=== PATIENT | female | born 1955 | race Caucasian/White ===

== ENCOUNTER 2018-07-11 09:13 | Day surgery (SDC) | payer MEDICARE ==
[2018-07-10 13:48] VITALS: BMI 35.2
[2018-07-11] MEDS ORDERED: Lidocaine 1% w/Epinephrine 1:100K 20 ML VIAL ONE (09:36)
[2018-07-11] MEDS ORDERED: Gelfilm 1 EA Packet ONE (09:36)
[2018-07-11 10:12] LABS: Anion Gap 14 mmol/L (10-20); BUN (Urea Nitrogen) 16 mg/dL (9.8-20.1); Calc. Creatinine Clearance 66 mL/min (70-130); Calcium 9.7 mg/dL (7.8-10.44); Carbon Dioxide 25 mmol/L (23-31); Chloride 104 mmol/L (98-107); Estimated GFR-MDRD 41; Glucose 99 mg/dL (80-115); Potassium 4.3 mmol/L (3.5-5.1); Sodium 139 mmol/L (136-145)
[2018-07-11] MEDS ORDERED: Fentanyl 100 MCG/2 ML VIAL ONE ×2 (10:23→13:39)
[2018-07-11] MEDS ORDERED: Midazolam HCl 2 mg/2 ml Vial ONE (10:23)
[2018-07-11] MEDS ORDERED: Ciprofloxacin 0.2% Otic 1 DROP CON ONE (12:10)
[2018-07-11] MEDS ORDERED: HYDROcodone/Acetaminophen 5/325 mg Tablet ONE (15:10)
[2018-07-11] MEDS ORDERED: PROPOFOL 200 MG/20 ML VIAL ONE (16:11)
[2018-07-11] MEDS ORDERED: Dexamethasone 20 MG/5 ML VIAL ONE (16:11)
[2018-07-11] MEDS ORDERED: ePHEDrine 50 MG/ML VIAL ONE (16:11)
[2018-07-11] MEDS ORDERED: Lidocaine 1% PF 5 ML VIAL ONE (16:11)
[2018-07-11] MEDS ORDERED: Rocuronium Bromide 10 MG/ML (10ML VIAL) ONE (16:11)
[2018-07-11] MEDS ORDERED: Ondansetron PF 4 MG/2 ML Vial ONE (16:11)
--- NOTE | 2018-07-12 09:29 | OP ---
DATE OF PROCEDURE: 07/11/2018 PREOPERATIVE DIAGNOSES: Right tympanic membrane perforation and chronic otitis media with otorrhea. POSTOPERATIVE DIAGNOSES: Right tympanic membrane perforation and chronic otitis media with otorrhea. PROCEDURE PERFORMED: Right tympanomastoidectomy with facial nerve monitoring. FINDINGS: The patient had a very large posterior tympanic membrane perforation and was found to have extensive mastoid mucosal disease. PROCEDURE IN DETAIL: After consent was obtained, the patient was identified, brought to the operating room, placed on the operating table in supine position. General endotracheal anesthesia was obtained. The patient was positioned for surgery. Facial nerve monitor was placed and documented to be functioning well. We then proceeded with standard approach for tympanomastoidectomy. The ear was infiltrated 1% lidocaine with 1:100,000 epinephrine as well as the postauricular area. The marginal epithelium on the perforation was beaded with a straight pick and then removed with curved cups. Physician prepped and draped the patient for surgery. A postauricular incision was made down the level of the mastoid cortex and the temporalis fascial graft was harvested. We then proceeded with simple mastoidectomy removing the cortex with a #5 cutting sameer. We then entered in to skeletonize the tegmen and the lateral canal and addressed the mastoid tip. Ultimately, we went through and entered the attic and encountered shrouds of mucosa and diseased bone. Ultimately, continuity was obtained from the mastoid into the attic and through the middle ear space was copiously irrigated. We then lifted the posterior tympanomeatal flap and performed an underlay technique with the temporalis fascia, which had been trimmed and dried. The middle ear was filled with Gelfoam. Flaps were replaced, and the external canal was filled with Gelfoam, treated with Ciprodex drops. The wound was closed in layers, and the [place] dressing was applied. The patient was awakened, taken to recovery come in stable condition prior to discharge home. Job ID: [id number]
== END 2018-07-11 16:30 | disposition home or self-care (01) ==
LOC: SDC 09:13
PROVIDERS: ATTEND Specialist
PROC: 09R707Z Replacement of Right Tympanic Membrane with Autologous Tissue Substitute, Open Approach (ICD-10-PCS; principal; 2018-07-11)
DX: H66.91 Otitis media, unspecified, right ear (principal); H72.91 Unspecified perforation of tympanic membrane, right ear; H92.11 Otorrhea, right ear; H90.6 Mixed conductive and sensorineural hearing loss, bilateral; H93.19 Tinnitus, unspecified ear; F41.9 Anxiety disorder, unspecified; I10 Essential (primary) hypertension; F17.200 Nicotine dependence, unspecified, uncomplicated; Z79.899 Other long term (current) drug therapy
CPT/HCPCS: 36415; 80048; 85014; 85018; 93005; 93010; J1100; J2001; J2250; J2405; J2704; J3010; J3490